=== PATIENT | male | born 1950 | race Caucasian/White ===

== ENCOUNTER 2021-03-13 07:13 | Inpatient (IN) ==
[2021-03-13] MEDS ORDERED: IOPAMIDOL 100 ML BOTTLE IV ONE (07:14)
[2021-03-13] MEDS ORDERED: IPRATROPIUM/ALBUTEROL 3 ML AMPUL.NEB NEB ONE (07:32)
[2021-03-13] MEDS ORDERED: 0.9 % SODIUM CHLORIDE 1,000 ML IV ONE ×2 (07:32→12:50)
--- NOTE | 2021-03-13 07:47 | Emergency Department Note ---
SOB HPI General Chief Complaint: Shortness of Breath/Dyspnea Stated Complaint: Sob, low sats Time Seen by Provider: 03/13/21 07:21 Source: EMS Mode of arrival: EMS Limitations: no limitations History of Present Illness HPI Narrative: 71-year-old male with past medical history of hypertension, lung cancer with metastases, paroxysmal A. fib, and history of Guillain-Quinteros syndrome presenting with shortness of breath. Patient states he has been getting more short of breath over the past few weeks. He called EMS this morning because his breathing was worse and did not seem to improve after using an albuterol inhaler. He has known metastatic lung cancer but is not currently being treated. Patient states they were trying to set him up with home oxygen and a home nebulizer but it has not been done. He is not on oxygen at home right now. Prior smoker. Patient endorses a nonproductive cough and reportedly a fever at home but he was afebrile in the ED. No sick contacts. Patient denies chest pain, vomiting, headache, abdominal pain, or leg swelling. Not on anticoagulation. Patient states that if his breathing were to worsen he would not want to be intubated or placed on a ventilator. He states that if his heart were to stop he would not want CPR and cardiac resuscitation. Related Data Home Medications Medication Instructions Recorded Confirmed amlodipine [Norvasc] 5 mg PO DAILY 03/13/21 03/13/21 benazepril 40 mg PO DAILY 03/13/21 03/13/21 Allergies Allergy/AdvReac Type Severity Reaction Status Date / Time No Known Drug Allergies Allergy Verified 03/13/21 07:13 Review of Systems ROS ROS Narrative: Narrative: Constitutional: Denies chills Eyes: Denies vision change ENT ED: Denies ear pain and throat pain Cardiovascular: Denies chest pain and palpitations Respiratory: Reports shortness of breath and cough; Denies hemoptysis Gastrointestinal: Denies abdominal pain, nausea and vomiting Genitourinary: Denies dysuria and frequency Musculoskeletal: Denies back pain and joint swelling Integumentary: Denies rash and lesions Neurological: Denies headache and weakness Psychiatric: Denies anxiety and depression Endocrine: Denies fatigue and heat or cold intolerance Hematological/Lymphatic: Denies easy bleeding and easy bruising PFSH Narrative Patient History Narrative: Narrative: Medical/Surgical/Family History All Active Problems (Updated 03/13/21 @ 11:24 by Poncho Naranjo MD) Left lower lobe pneumonia (Acute) Tachycardia (Acute) Weight loss, non-intentional (Acute) Right pulmonary embolus (Acute) Hypoxia (Acute) Hypertension, essential (Chronic) Cigarette smoker (Chronic) History of atrial fibrillation (Chronic ~2016) Daily consumption of alcohol (Chronic) Coronary artery calcification seen on CAT scan (Chronic) Centrilobular emphysema (Chronic) Kidney calculi (Chronic) Medical History (Updated 03/13/21 @ 11:24 by Poncho Naranjo MD) Adenocarcinoma of left lung moderately differentiated; s/p lobectomy TTF-1: Positive. Napsin-A: Positive. CK7: Positive. CK20: Negative. p63: Negative. Centrilobular emphysema mild, seen on CT chest October 2016 Cigarette smoker Coronary artery calcification seen on CAT scan chest CT October 2016 Daily consumption of alcohol past usual 6 pack/day History of atrial fibrillation (~2016) attempted cardioversion once, then spontaneously reverted to sinus. History of Guillain-Withams syndrome (~2006) Hypertension, essential Kidney calculi Surgical History (Updated 11/27/18 @ 09:52 by Xavier Carrillo DO) History of kidney surgery for removal of stone S/P lobectomy of lung left upper (adenocarcinoma) Status post tracheostomy when had Guillain-Withams Family History (Updated 11/27/18 @ 09:52 by Xavier Carrillo DO) Mother Valvular heart disease Social History Smoking Status: Current every day smoker Exam Narrative Narrative: Narrative: General Limitations: no limitations General appearance: Present alert and in no apparent distress Head Head: Present atraumatic and normocephalic Eye Eye: Present normal appearance, PERRL and EOMI; Absent scleral icterus and conjunctival injection ENT ENT: Present normal oropharynx and mucous membranes moist Neck Neck: Present full ROM and trachea midline; Absent lymphadenopathy and thyromegaly Chest Chest: Present symmetric chest wall rise Respiratory Respiratory: Present wheezes (Faint expiratory wheezes present) and other (Coarse breath sounds bilaterally); Absent respiratory distress, stridor, accessory muscle use and prolonged expiratory phase Cardiovascular Cardiovascular: Present normal rhythm and tachycardia; Absent systolic murmur and diastolic murmur Adbominal Abdominal: Present soft; Absent distention, tenderness, guarding, rebound, rigidity, organomegaly and mass Extremities Extremities: Absent pedal edema, pretibial edema and calf tenderness Back Back: Absent CVA tenderness (R), CVA tenderness (L) and spinous process tenderness Neurological Neurological: Present alert and oriented X3 Psychiatric Psychiatric: Present normal affect and normal mood Skin Skin: Present warm (WNL) and dry Course Consultations Consultation #1: Dr. Campbell, hospitalist Time: 10:53 Vital Signs Vital signs: Vital Signs Temperature 97.5 F 03/13/21 07:13 Pulse Rate 143 H 03/13/21 07:13 Respiratory Rate 20 03/13/21 07:13 Blood Pressure 150/84 03/13/21 07:13 Pulse Oximetry (%) 94 03/13/21 07:13 Temperature 97.5 F 03/13/21 07:13 Pulse Rate 128 H 03/13/21 12:46 Respiratory Rate 28 H 03/13/21 12:46 Blood Pressure 108/61 03/13/21 12:46 Pulse Oximetry (%) 90 03/13/21 12:46 MDM MDM Narrative Medical decision making narrative: 71-year-old male presenting with dyspnea in the setting of known metastatic lung cancer. On EMS arrival he was satting in the 60s on room air. He is now satting 93% on 4 L via nasal cannula. EKG shows sinus tachycardia. He does have some faint wheezing and coarse breath sounds on exam. Patient is DNR/DNI. Will obtain labs, chest x-ray, Covid swab, and reevaluate. Labs notable for mild BETINA. Chest x-ray with no focal infiltrate. Given persistent hypoxia, CT chest obtained which shows multiple right lower lobe pulmonary emboli. Patient stable on 5 L O2 via nasal cannula. 2 L normal saline bolus given. IM subcutaneous enoxaparin 60 mg given. Covid test negative. Patient discussed with admitting hospitalist, Dr. Campbell. Lab Data Lab results reviewed: Yes I reviewed the patient's lab results. Result diagrams: 03/13/21 07:50 03/13/21 07:50 Labs: Lab Results 03/13/21 03/13/21 03/13/21 Range/Units 07:33 07:50 07:50 WBC 14.4 H (4.5-11.0) K/mcL RBC 3.83 L (4.63-6.08) M/mcL Hgb 10.7 L (13.7-17.5) g/dL Hct 32.3 L (40.1-51.0) % MCV 84.3 (80.0-100.0) fL MCH 27.9 (26.0-34.0) pg MCHC 33.1 (31.0-36.0) g/dL RDW 16.3 H (11.5-14.5) % Plt Count 310 (140-440) K/mcL MPV 11.1 H (7.4-10.4) fL Neut % (Auto) 71.3 (38.0-78.0) % Lymph % (Auto) 16.1 (15.5-49.0) % [place] % (Auto) 7.9 (1.0-12.0) % Eos % (Auto) 3.9 (0.0-7.0) % Baso % (Auto) 0.8 (0.0-2.0) % Lymph # (Auto) 2.31 (1.50-4.80) K/mcL [place] # (Auto) 1.14 H (0.10-0.90) K/mcL Eos # (Auto) 0.56 (0.00-0.70) K/mcL Baso # (Auto) 0.11 (0.00-0.30) K/mcL Absolute Neutrophils 10.24 H (1.80-8.00) K/mcL PT 15.8 H (11.9-14.5) sec INR 1.2 H (0.9-1.1) APTT 37.0 (20.0-37.0) sec Sodium 140 (133-145) mmol/L Potassium 3.7 (3.3-5.1) mmol/L Chloride 100 (96-108) mmol/L Carbon Dioxide 24 (22-30) mmol/L Anion Gap 16.0 (8.0-16.0) BUN 16 (8-23) mg/dL Creatinine 1.4 H (0.7-1.2) mg/dL GFR Calculation 51 Glucose 116 H (70-105) mg/dL Calcium 9.0 (8.6-10.4) mg/dL Total Bilirubin 0.5 (0.1-1.0) mg/dL AST 24 (<40) U/L ALT 13 (<40) U/L Alkaline Phosphatase 106 (39-117) U/L Total Protein 7.5 (5.9-8.4) gm/dL Albumin 3.1 L (3.2-5.2) gm/dL Globulin 4.4 H (2.2-3.7) gm/dL Albumin/Globulin Ratio 0.7 L (1.0-2.3) ED POC Tests ED POC Tests: SANKET - SARS Antigen Negative Radiology Data Radiology results reviewed: Yes I reviewed the patient's radiology results. Radiology results narrative: Ordering Physician: Poncho Naranjo M.D. Date of Service: 03/13/21 Procedure(s): XR chest 1V Accession Number(s): [id number] HISTORY: Dyspnea status post partial resection left lung for lung cancer, emphysema FINDINGS: There is chronic scar tissue around the left hilum and medially in the left upper thorax following a prior lobectomy. Left lung is slightly smaller than the right, but both lungs are hyperinflated due to underlying emphysema. Mild parenchymal scarring in both lungs. There is no evidence of pneumonia and no discrete mass is identified. The Nodules which were seen in the right upper lobe on the chest CT done on 02/11/21 are not clearly identified on radiograph. The heart size is normal. There is no congestive heart failure. Comparison with prior x-ray done on 10/20/20 shows little change. IMPRESSION: COPD and postsurgical changes with no acute abnormality Interpreted and Authenticated by: Jonatan Gao 03/13/21 CTA chest: Multiple pulmonary emboli in the right lower lobe, per radiologist Dr. Gao. EKG Data EKG #1: EKG attestation: Yes I reviewed and interpreted this EKG. and Yes There are no EKG findings of acute coronary syndrome EKG results narrative: Sinus tachycardia at 142 bpm. Right bundle branch block is present. No ST elevation. EKG appears similar to previous from October 2020. When compared to previous EKG there are: no significant changes Pulse Oximetry Data Pulse Ox %: 93 Interpretation: On 4 L O2 via nasal cannula Discharge Plan Patient/Caregiver Discharge Instructions Pt seen by DIRECTOR [place] only: No Clinical Impression: Right pulmonary embolus, Hypoxia Patient Disposition: Xfer As Inpt ([facility]) Condition: Fair Discharge Date/Time: 03/13/21 12:35 Discharge Comment: Room 119
[2021-03-13] MEDS ORDERED: methylPREDNISolone SOD SUCC 125 MG/2 ML VIAL IV ONE (08:23)
[2021-03-13 08:32] LABS: Basophils # (Auto) 0.11 K/mcL (0.00-0.30); Basophils % (Auto) 0.8 % (0.0-2.0); Eosinophils # (Auto) 0.56 K/mcL (0.00-0.70); Eosinophils % (Auto) 3.9 % (0.0-7.0); Hematocrit 32.3 % (40.1-51.0); Hemoglobin 10.7 g/dL (13.7-17.5); Lymphocytes # (Auto) 2.31 K/mcL (1.50-4.80); Lymphocytes % (Auto) 16.1 % (15.5-49.0); Mean Cell Volume 84.3 fL (80.0-100.0); Mean Corpuscular HGB Conc 33.1 g/dL (31.0-36.0); Mean Platelet Volume 11.1 fL (7.4-10.4); Monocytes # (Auto) 1.14 K/mcL (0.10-0.90); Monocytes % (Auto) 7.9 % (1.0-12.0); Neutrophils % (Auto) 71.3 % (38.0-78.0); Platelet Count 310 K/mcL (140-440); RBC 3.83 M/mcL (4.63-6.08); Red Cell Distribution Width 16.3 % (11.5-14.5); WBC 14.4 K/mcL (4.5-11.0)
--- NOTE | 2021-03-13 08:42 | XRay Report ---
HISTORY: Dyspnea status post partial resection left lung for lung cancer, emphysema FINDINGS: There is chronic scar tissue around the left hilum and medially in the left upper thorax following a prior lobectomy. Left lung is slightly smaller than the right, but both lungs are hyperinflated due to underlying emphysema. Mild parenchymal scarring in both lungs. There is no evidence of pneumonia and no discrete mass is identified. The Nodules which were seen in the right upper lobe on the chest CT done on 02/11/21 are not clearly identified on radiograph. The heart size is normal. There is no congestive heart failure. Comparison with prior x-ray done on 10/20/20 shows little change. IMPRESSION: COPD and postsurgical changes with no acute abnormality Interpreted and Authenticated by: Jonatan Gao 03/13/21
[2021-03-13 08:54] LABS: ALT/SGPT 13 U/L (<40); AST/SGOT 24 U/L (<40); Albumin 3.1 gm/dL (3.2-5.2); Albumin/Globulin Ratio 0.7 (1.0-2.3); Alkaline Phosphatase 106 U/L (39-117); Bilirubin,Total 0.5 mg/dL (0.1-1.0); Blood Urea Nitrogen 16 mg/dL (8-23); Carbon Dioxide 24 mmol/L (22-30); Chloride 100 mmol/L (96-108); Globulin 4.4 gm/dL (2.2-3.7); Glomerular Filtration Rate 51; Glucose 116 mg/dL (70-105)
[2021-03-13] MEDS ORDERED: ENOXAPARIN 60 MG/0.6 ML SYRINGE SQ ONE (10:00)
[2021-03-13 10:45] LABS: INR 1.2 (0.9-1.1); Prothrombin Time 15.8 sec (11.9-14.5)
--- NOTE | 2021-03-13 11:47 | Internal Med History&Physical ---
HPI History of Present Illness Patient information: Note initiated : 03/13/21 at 11:47 am Service Date, if different from initiated Date: [] Patient: Richy Boggs 71 y/o M admitted on for Sob, low sats. Chief Complaint: Dyspnea History of present illness: Mr. Boggs is a 71 year old M with a history of COPD, adenocarcinoma lung cancer (2017) with possible adrenal met (PET/CT pending for 03/15), hypertension, paroxysmal atrial fibrillation who presented to the emergency department with worsening dyspnea. Patient does have chronic dyspnea and is noted dyspnea with exertion for about the last 6 months. However over the last 3-4 days he has had significantly worsening dyspnea with exertion. His family notes that he desats into the low 80s in mid 70s with exertion over the past few days and has been in the high 80s at rest on room air. They have been working with his PCP to obtain home oxygen and a nebulizer. He presents to the emergency department today because of worsening dyspnea. EMS found his saturations in the low 60s and he required 5 LPM by nasal cannula to maintain saturations. In the emergency department, he had some mild wheezing and had a DuoNeb which may have provided some transient benefit. He was tachycardic as well as tachypneic. White count was elevated at 14,000, though chest x-ray showed postoperative changes (partial left upper lobectomy in 2017) and nothing acute. He underwent CTA of the chest which revealed right lower and middle lobe pulmonary emboli. He was started on enoxaparin. Patient denies any fevers or chills. He occasionally gets chest tightness. He has a chronic cough though lately he has not been producing sputum. He has had no hemoptysis. He has pain along his lower rib margin with inspiration. As noted he is felt dyspneic with exertion for about 6 months, though that is significantly worsened over the last 3-4 days. He has noted some wheezing, but not much. In addition the patient has been losing weight over the last few months and has decreased appetite. He did have one episode of night sweats in the last week or 2. He does complain of some nausea after getting episodes of vertigo which appear to occur at night when he rolls over. His last episode was about a week ago. Complains of some numbness in his feet. Is had no lower extremity edema, no orthopnea. There is no family history of clotting disorders. Review of Systems All systems: reviewed and no additional remarkable complaints except as stated PFSH PFSH All Active Problems (Updated 03/13/21 @ 11:24 by Poncho Naranjo MD) Left lower lobe pneumonia (Acute) Tachycardia (Acute) Weight loss, non-intentional (Acute) Right pulmonary embolus (Acute) Hypoxia (Acute) Hypertension, essential (Chronic) Cigarette smoker (Chronic) History of atrial fibrillation (Chronic ~2016) Daily consumption of alcohol (Chronic) Coronary artery calcification seen on CAT scan (Chronic) Centrilobular emphysema (Chronic) Kidney calculi (Chronic) Medical History (Updated 03/13/21 @ 11:24 by Poncho Naranjo MD) Adenocarcinoma of left lung moderately differentiated; s/p lobectomy TTF-1: Positive. Napsin-A: Positive. CK7: Positive. CK20: Negative. p63: Negative. Centrilobular emphysema mild, seen on CT chest October 2016 Cigarette smoker Coronary artery calcification seen on CAT scan chest CT October 2016 Daily consumption of alcohol past usual 6 pack/day History of atrial fibrillation (~2016) attempted cardioversion once, then spontaneously reverted to sinus. History of Guillain-Redding syndrome (~2006) Hypertension, essential Kidney calculi Surgical History (Updated 11/27/18 @ 09:52 by Xavier Carrillo DO) History of kidney surgery for removal of stone S/P lobectomy of lung left upper (adenocarcinoma) Status post tracheostomy when had Guillain-Redding Family History (Updated 11/27/18 @ 09:52 by Xavier Carrillo DO) Mother Valvular heart disease Social History (Updated 03/13/21 @ 15:58 by Gricelda Campbell MD) smoking status: Current every day smoker tobacco type: cigarettes alcohol intake frequency: former alcohol drinker MEDS/ALLERGIES Home Medications and Allergies Home Medications Medication Instructions Recorded Confirmed Type amlodipine [Norvasc] 5 mg PO DAILY 03/13/21 03/13/21 History benazepril 40 mg PO DAILY 03/13/21 03/13/21 History Allergies Allergy/AdvReac Type Severity Reaction Status Date / Time No Known Drug Allergies Allergy Verified 03/13/21 07:13 EXAM Constitutional Vitals: Temp Pulse Resp BP Pulse Ox 97.5 F 120 H 30 H 113/70 89 L 03/13/21 07:13 03/13/21 11:27 03/13/21 11:27 03/13/21 11:15 03/13/21 11:27 GENERAL: Alert, oriented, in mild respiratory distress. Cooperative, appears stated age. HEENT: Atraumatic. Pupils equal at 3 mm, conjunctiva clear, no scleral icterus. Hearing grossly intact. Oropharynx with tacky mucous membranes, no lip or gum lesions, no pharyngeal erythema or exudate. Tongue midline. NECK: Supple without meningismus, no thyromegaly RESPIRATORY: Breath sounds clear bilaterally without wheezes or rhonchi. Respiratory effort is moderately labored. CARDIOVASCULAR: Tachycardic, regular, no gallop appreciated. No peripheral edema. Carotid pulses 2+. GI: Abdomen soft, nontender, no guarding or rebound. Bowel sounds are present. MUSCULOSKELETAL: No joint erythema or swelling, normal range of motion in all extremities. SKIN: Intact, warm, dry. No lesions. Skin turgor decreased. NEUROLOGIC: Cranial nerves II through XII grossly intact. Muscle mass decreased. Strength 5/5 in the upper and lower extremities. Sensation intact to light touch bilaterally. PSYCHIATRIC: Alert, oriented x3, normal mood and affect for situation, normal insight. DATA Data Completed and Pending Labs: Labs from last 24 hours 03/13/21 03/13/21 03/13/21 07:50 07:50 07:33 WBC 14.4 H RBC 3.83 L Hgb 10.7 L Hct 32.3 L MCV 84.3 MCH 27.9 MCHC 33.1 RDW 16.3 H Plt Count 310 MPV 11.1 H Neut % (Auto) 71.3 Lymph % (Auto) 16.1 [place] % (Auto) 7.9 Eos % (Auto) 3.9 Baso % (Auto) 0.8 Lymph # (Auto) 2.31 [place] # (Auto) 1.14 H Eos # (Auto) 0.56 Baso # (Auto) 0.11 Absolute Neutrophils 10.24 H PT 15.8 H INR 1.2 H APTT 37.0 Sodium 140 Potassium 3.7 Chloride 100 Carbon Dioxide 24 Anion Gap 16.0 BUN 16 Creatinine 1.4 H GFR Calculation 51 Glucose 116 H Calcium 9.0 Total Bilirubin 0.5 AST 24 ALT 13 Alkaline Phosphatase 106 Total Protein 7.5 Albumin 3.1 L Globulin 4.4 H Albumin/Globulin Ratio 0.7 L Imaging and Cardiology Chest x-ray: Status: image reviewed by me Additional comments: IMPRESSION: COPD and postsurgical changes with no acute abnormality CT scan - chest: Status: image reviewed by me Additional comments: IMPRESSION: Multiple pulmonary emboli in the right lower lobe with milder involvement in the right middle lobe. Right heart strain COPD and pulmonary fibrosis No evidence of metastasis or recurrent tumor following left upper lobectomy Echo: Additional comments: Normal LVEF. Dilated right ventricle which is hypocontractile. Moderate pulmonary regurgitation, PA pressure 66. 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 A/P Narrative A/P Narrative: 71-year-old male with underlying COPD, history of lung cancer with possible recurrence, paroxysmal atrial fibrillation presents with worsening dyspnea on exertion, found to have multiple right lower and middle lobe pulmonary emboli. Pulmonary emboli -Right lower and right middle lobe involvement -Right heart strain on CT and echocardiogram -High risk submassive pulmonary embolism -Started on enoxaparin in the ED prior to echo result -Suspicious this may be provoked from recurrent lung cancer -Discussed with [facility] scale mechanic -Close monitoring -Patient would prefer to stay at this facility versus transfer for possibility of site directed thrombolytics -He realizes, if condition worsens we may not be able to affect transfer -Systemic TPA also possible -We will rule out acidosis and correct such to improve RV function -Maintain adequate oxygen saturations to prevent hypoxic pulmonary vasoconstriction -Transition to unfractionated heparin when next enoxaparin dose due -We will continue to consult with [facility] scale mechanic and update Acute hypoxemic respiratory failure -Secondary to pulmonary emboli COPD -No acute exacerbation -No wheezing on exam -Suspect presentation due to pulmonary emboli and not COPD exacerbation or pulmonary infection Paroxysmal atrial fibrillation -In normal sinus rhythm Non-small cell lung cancer -Adenocarcinoma, status post partial left upper lobectomy in 2017 -Weight loss and suspicion is adrenal lesions for metastasis -Was to have PET/CT 03/15, will need to be postponed Chronic kidney disease -Creatinine 1.4, similar to 1 month ago -Creatinine on 11/25/2018 was 1.0 Plan: Inpatient admission Enoxaparin, transition to unfractionated heparin Supplemental oxygen to maintain SaO2 Close monitoring of saturations and hemodynamics Check ABG, correct any acidosis Check BNP and troponin, trend Check lower extremity duplex Monitor hemoglobin, correct any anemia Consider systemic TPA and/or transfer if decompensated Patient accepts risks of remaining locally and reiterates DNR/DNI CODE STATUS CODE STATUS: DNR/DNI Prophylaxis: Systemic anticoagulation with heparins Critical care time: 33 minutes in bedside management of critically ill patient with respiratory failure from submassive pulmonary embolism, including management at bedside, consultation with specialist, reevaluating the patient while immediately available on the unit.
[2021-03-13] MEDS ORDERED: ONDANSETRON 4 MG/2 ML VIAL IV PRN (12:37)
[2021-03-13] MEDS ORDERED: MAGNESIUM HYDROXIDE 30 ML ORAL.SUSP PO PRN (12:37)
[2021-03-13] MEDS ORDERED: ACETAMINOPHEN 325 MG TABLET PO PRN (12:37)
[2021-03-13] MEDS ORDERED: 0.9 % SODIUM CHLORIDE 1,000 ML IV SCH (12:37)
[2021-03-13] MEDS ORDERED: IPRATROPIUM/ALBUTEROL 3 ML AMPUL.NEB NEB PRN (12:37)
[2021-03-13] MEDS ORDERED: SENNOSIDES 1 TABLET PO PRN (12:37)
[2021-03-13] MEDS ORDERED: LACTULOSE 20 GM/30 ML ORAL.SOL PO PRN (12:37)
[2021-03-13] MEDS: 0.9 % SODIUM CHLORIDE 10 ML SYRINGE IV SCH ×3 (12:45→21:25)
--- NOTE | 2021-03-13 14:48 | Cat Scan Report ---
History: Dyspnea, prior left upper lobectomy for lung cancer, COPD TECHNIQUE: Following injection of intravenous nonionic contrast the chest was imaged during the pulmonary arterial phase at 2.5 mm intervals. Sagittal, coronal and axial MIPS images were obtained. The radiation exposure was limited using dose reduction technology. FINDINGS: There are multiple pulmonary emboli in the right lower lobe. This predominantly involves the basilar segments but there is a small embolus to the branch to the superior segment. Small peripheral embolus is seen in the right middle lobe. The right upper lobe is normal. No embolus is present in the left lung. There is evidence of right heart strain. The ratio of right ventricular transverse diameter to left is 1.6:1. The main pulmonary artery is not larger than the aorta. There are postsurgical changes following prior left upper lobectomy. There is scar tissue medially in the left upper thorax and upper retraction left hilum. No residual or recurrent tumor are present. Moderate centrilobular emphysema is present in both lungs. There are scattered areas of fibrosis. Low level inflammation is present in the posterior basal segment of the left lower lobe. The inflammatory changes in the left lower lobe have improved since the prior CT done on 02/11/21. A small ground glass alveolar infiltrate was also seen posteriorly in the right upper lobe on the prior CT which has nearly resolved. There is no lobar consolidation. No pleural effusion is present. The trachea and bronchi are normal. IMPRESSION: Multiple pulmonary emboli in the right lower lobe with milder involvement in the right middle lobe. Right heart strain COPD and pulmonary fibrosis No evidence of metastasis or recurrent tumor following left upper lobectomy Dr. Naranjo was called with the report Interpreted and Authenticated by: Jonatan Gao 03/13/21
[2021-03-13 15:58] LABS: Appearance,Urine CLEAR (Clear); Bilirubin,Urine Negative (Negative); Color,Urine AMBER; Culture Indicated,Urine No; Glucose,Urine (UA) Negative (Negative); Ketones,Urine Negative (Negative); Leukocyte Esterase,Urine Negative /uL (Negative); Nitrate,Urine Negative (Negative); Protein,Urine 30 mg/dL (Negative); Specific Gravity,Urine 1.019 (1.000-1.035); Urine Blood 0.03 mg/dL (Negative); Urine RBC 0 /hpf (0-3); Urine Squamous Epithelial Cell 0 /hpf (0-4); Urine WBC 0 /hpf (0-4); Urobilinogen,Urine Negative
[2021-03-13] MEDS: 0.9 % SODIUM CHLORIDE 1,000 ML IV SCH (18:48)
[2021-03-13] MEDS ORDERED: HEPARIN 5,000 UNIT/ML VIAL IV ONE (19:49)
[2021-03-13] MEDS ORDERED: ENOXAPARIN 100 MG/ML SYRINGE SQ SCH (21:00)
[2021-03-13] MEDS: HEPARIN SOD,PORK IN 0.45% NACL 25,000 UNIT in PREMIX 1 BAG IV SCH (21:28)
[2021-03-14] MEDS: 0.9 % SODIUM CHLORIDE 1,000 ML IV SCH (03:43)
[2021-03-14 04:39] LABS: Basophils # (Auto) 0.02 K/mcL (0.00-0.30); Basophils % (Auto) 0.2 % (0.0-2.0); Eosinophils # (Auto) 0 K/mcL (0.00-0.70); Eosinophils % (Auto) 0 % (0.0-7.0); Hematocrit 30.5 % (40.1-51.0); Hemoglobin 9.8 g/dL (13.7-17.5); Lymphocytes # (Auto) 2.14 K/mcL (1.50-4.80); Lymphocytes % (Auto) 16.9 % (15.5-49.0); Mean Cell Volume 85.9 fL (80.0-100.0); Mean Corpuscular HGB Conc 32.1 g/dL (31.0-36.0); Mean Platelet Volume 11.4 fL (7.4-10.4); Monocytes # (Auto) 0.61 K/mcL (0.10-0.90); Monocytes % (Auto) 4.8 % (1.0-12.0); Neutrophils % (Auto) 78.1 % (38.0-78.0); Platelet Count 351 K/mcL (140-440); RBC 3.55 M/mcL (4.63-6.08); Red Cell Distribution Width 16.3 % (11.5-14.5); WBC 12.7 K/mcL (4.5-11.0)
[2021-03-14 04:56] LABS: Blood Urea Nitrogen 27 mg/dL (8-23); Calcium 8.7 mg/dL (8.6-10.4); Carbon Dioxide 21 mmol/L (22-30); Chloride 101 mmol/L (96-108); Glomerular Filtration Rate 55; Glucose 150 mg/dL (70-105)
[2021-03-14] MEDS: 0.9 % SODIUM CHLORIDE 10 ML SYRINGE IV SCH ×3 (06:28→22:04)
[2021-03-14] MEDS: PANTOPRAZOLE 40 MG TABLET PO SCH (07:43)
[2021-03-14] MEDS ORDERED: HEPARIN 5,000 UNIT/ML VIAL IV ONE ×3 (07:45→22:00)
--- NOTE | 2021-03-14 08:07 | Internal Med Progress Note ---
SUBJECTIVE Subjective Patient information: Note initiated : 03/14/21 at 8:07 am Service Date, if different from initiated Date: [] Patient: Richy Boggs 71 y/o M admitted on 03/13/21 for Sob, low sats. Chief Complaint: f/u PE Interval history: Mr. Boggs is a 71 year old M with a history of COPD, adenocarcinoma lung cancer (2017) with possible adrenal met (PET/CT pending for 03/15), hypertension, paroxysmal atrial fibrillation who presented to the emergency department with worsening dyspnea. Patient does have chronic dyspnea and is noted dyspnea with exertion for about the last 6 months. However over the last 3-4 days he has had significantly worsening dyspnea with exertion. His family notes that he desats into the low 80s in mid 70s with exertion over the past few days and has been in the high 80s at rest on room air. They have been working with his PCP to obtain home oxygen and a nebulizer. He presents to the emergency department today because of worsening dyspnea. EMS found his saturations in the low 60s and he required 5 LPM by nasal cannula to maintain saturations. In the emergency department, he had some mild wheezing and had a DuoNeb which may have provided some transient benefit. He was tachycardic as well as tac hypneic. White count was elevated at 14,000, though chest x-ray showed postoperative changes (partial left upper lobectomy in 2017) and nothing acute. He underwent CTA of the chest which revealed right lower and middle lobe pulmonary emboli. He was started on enoxaparin. Patient denies any fevers or chills. He occasionally gets chest tightness. He has a chronic cough though lately he has not been producing sputum. He has had no hemoptysis. He has pain along his lower rib margin with inspiration. As noted he is felt dyspneic with exertion for about 6 months, though that is significantly worsened over the last 3-4 days. He has noted some wheezing, but not much. 03/14 Patient more comfortable this morning. Not quite as dyspneic. However does desaturate with most movement. No chest pain. Did not sleep at all last night, is unable to fall asleep. Requesting something to help sleep. BNP 11,490 today. On 10 LPM by facemask, have been on 12 LPM last night. Constitutional Vitals: Vital Signs Temp Pulse Resp BP Pulse Ox 98.4 F 120 H 28 H 142/91 94 03/14/21 04:09 03/14/21 05:37 03/14/21 06:00 03/14/21 06:00 03/14/21 06:00 Period Temp Pulse Resp BP Sys/Alvarenga Pulse Ox Last 24 Hr 97.1 F-98.9 F 120-139 19-40 100-176/61-99 85-98 Intake and Output 03/13/21 03/14/21 03/14/21 21:59 05:59 13:59 Intake Total 465 755 156 Output Total 600 375 Balance -135 380 156 Weight 143 lb 8 oz Intake & Output: Intake & Output 03/13/21 03/14/21 03/14/21 21:59 05:59 13:59 Intake Total 465 755 156 Output Total 600 375 Balance -135 380 156 Weight 143 lb 8 oz Intake: IV 465 515 156 Sodium Chloride 0.9% 1,000 ml @ 465 515 100 mls/hr IV .Q10H [facility] Rx#: [id number] Heparin/0.45%Ns 25,000 Unit In 156 Premix 1 Bag @ 14 UNIT/KG/HR 17 .781 mls/hr IV .Q24H [facility] Rx#: [id number] Oral 240 Output: Void Amount 600 375 Other: Meal Dinner Percent of Meal Consumed 0% Feeding Ability Independent Urine Appearance Clear Clear Urine Color Dark Em Dark Yellow Urine Odor Normal Normal Stool Size Moderate Stool Color Brown Stool Consistency Soft Watery # Bowel Movements 1 GENERAL: Laying in bed, mildly tachypneic, nontoxic RESPIRATORY: Clear bilaterally, respirations mildly labored CARDIOVASCULAR: Tachycardic, regular ABDOMEN: Soft, nontender EXTREMITIES: No edema, no tenderness NEURO: Alert, oriented x3, mild generalized weakness OBJ DATA Labs CBC & Chem 7: 03/14/21 04:10 03/14/21 04:10 Labs: Abnormal Lab Results 03/14/21 03/14/21 03/14/21 04:10 04:10 04:09 WBC 12.7 H RBC 3.55 L Hgb 9.8 L Hct 30.5 L RDW 16.3 H MPV 11.4 H Neut % (Auto) 78.1 H [place] # (Auto) Absolute Neutrophils 9.92 H PT INR APTT 42.4 H Carbon Dioxide 21 L BUN 27 H Creatinine 1.3 H Glucose 150 H Troponin T NT-Pro-B Natriuret Pep Albumin Globulin Albumin/Globulin Ratio Urine Protein 03/14/21 03/13/21 03/13/21 04:09 15:17 07:50 WBC RBC Hgb Hct RDW MPV Neut % (Auto) [place] # (Auto) Absolute Neutrophils PT INR APTT Carbon Dioxide BUN Creatinine Glucose Troponin T NT-Pro-B Natriuret Pep 29262.0 H 4997.0 H Albumin Globulin Albumin/Globulin Ratio Urine Protein 30 A 03/13/21 03/13/21 03/13/21 07:50 07:50 07:50 WBC 14.4 H RBC 3.83 L Hgb 10.7 L Hct 32.3 L RDW 16.3 H MPV 11.1 H Neut % (Auto) [place] # (Auto) 1.14 H Absolute Neutrophils 10.24 H PT INR APTT Carbon Dioxide BUN Creatinine 1.4 H Glucose 116 H Troponin T 0.08 H* NT-Pro-B Natriuret Pep Albumin 3.1 L Globulin 4.4 H Albumin/Globulin Ratio 0.7 L Urine Protein 03/13/21 07:33 WBC RBC Hgb Hct RDW MPV Neut % (Auto) [place] # (Auto) Absolute Neutrophils PT 15.8 H INR 1.2 H APTT Carbon Dioxide BUN Creatinine Glucose Troponin T NT-Pro-B Natriuret Pep Albumin Globulin Albumin/Globulin Ratio Urine Protein Meds: Medications Acetaminophen (Acetaminophen 325 Mg Tablet) 650 mg PO Q6HP PRN; Protocol PRN Reason: Per Pain Protocol/Fever > 101 Last Admin: 03/13/21 21:48 Dose: 650 mg Documented by: Albuterol/Ipratropium (Ipratropium/Albuterol 3 Ml Ampul.Neb) 3 ml NEB Q4HP PRN PRN Reason: Wheezing Heparin Sodium/Sodium Chloride (25,000 unit/ Premix) 500 mls @ 17.781 mls/hr IV .Q24H [facility]; Protocol Last Titration: 03/14/21 06:15 Dose: 18 unit/kg/hr, 22.861 mls/hr Documented by: Lactulose (Lactulose 20 Gm/30 Ml Oral.Denice) 10 gm PO DAILYP PRN PRN Reason: Constipation Magnesium Hydroxide (Magnesium Hydroxide 30 Ml Oral.Susp) 30 ml PO DAILYP PRN PRN Reason: Constipation Ondansetron HCl (Ondansetron 4 Mg/2 Ml Vial) 4 mg IV Q4HP PRN; Protocol PRN Reason: Nausea And Vomiting Pantoprazole Sodium (Pantoprazole 40 Mg Tablet) 40 mg PO QAMAC [facility] Last Admin: 03/14/21 07:43 Dose: 40 mg Documented by: Senna (Sennosides 1 Tablet) 2 tab PO HSP PRN PRN Reason: Constipation Sodium Chloride (0.9 % Sodium Chloride 10 Ml Syringe) 10 ml IV Q8 [facility] Last Admin: 03/14/21 06:28 Dose: Not Given Documented by: A/P Narrative A/P Narrative: 71-year-old male with underlying COPD, history of lung cancer with possible recurrence, paroxysmal atrial fibrillation presents with worsening dyspnea on exertion, found to have multiple right lower and middle lobe pulmonary emboli. Pulmonary emboli -High risk submassive pulmonary emboli -Right lower and right middle lobe involvement -Right heart strain on CT and echocardiogram -Started on enoxaparin in the ED prior to echo result -Transition to IV heparin after discussion with [facility] metal stamping machine operator -Suspicious this may be provoked from recurrent lung cancer -Close monitoring -Patient would prefer to stay at this facility versus transfer for possibility of site directed thrombolytics -He realizes, if condition worsens we may not be able to affect transfer -Systemic TPA also possible -No evidence of acidosis, will continue to monitor and correct if needed to maintain RV function -Maintain adequate oxygen saturations to prevent hypoxic pulmonary vasoconstriction -Will continue to consult with [facility] metal stamping machine operator and update as needed Acute hypoxemic respiratory failure -Secondary to pulmonary emboli COPD -No acute exacerbation -No wheezing on exam -Suspect presentation due to pulmonary emboli and not COPD exacerbation or pulmonary infection Paroxysmal atrial fibrillation -In normal sinus rhythm Non-small cell lung cancer -Adenocarcinoma, status post partial left upper lobectomy in 2017 -Weight loss and suspicion is adrenal lesions for metastasis -Was to have PET/CT 03/15, will need to be postponed Chronic kidney disease -Creatinine 1.4, similar to 1 month ago -Creatinine on 11/25/2018 was 1.0 -Creatinine 1.3 on 03/14 Plan: * Continue unfractionated heparin * Continue supplemental oxygen to maintain SaO2 greater than 92% * Continue to closely monitor hemodynamics and oxygen saturations * Saline lock to avoid RV overload * Bedrest given hypoxia with exertion * Continue to trend BNP * Monitor hemoglobin, correct anemia if present * If decompensates, consider systemic TPA and/or transfer * Follow-up lower extremity duplex to evaluate any further clot burden CODE STATUS: DNR/DNI Prophylaxis: Systemic anticoagulation with heparin Time Spent With Patient Time: Total time spent is greater than 50% in coordination of care (as documented) at patient's floor/unit and/or counseling patient: Total time spent with greater than 50% in coordination of care (as documented) at patient's floor/unit and/or counseling patient:: Greater than 35 minutes QUALITY VTE Deep Vein Thrombosis/Pulmonary Embolism Present on Admission: Yes
[2021-03-14] MEDS ORDERED: traZODone HCL 50 MG TABLET PO PRN (08:57)
[2021-03-14] MEDS ORDERED: HEPARIN 5,000 UNIT/ML VIAL SQ ONE (14:00)
[2021-03-14] MEDS: LISINOPRIL 20 MG TABLET PO SCH (14:54)
[2021-03-14] MEDS: amLODIPine 5 MG TABLET PO SCH (14:54)
--- NOTE | 2021-03-14 20:23 | Ultrasound Report ---
History: Pulmonary emboli, evaluate for deep venous thrombosis FINDINGS: In the right leg there is normal augmentation and compressibility of the deep veins and saphenous veins from the groin through the calf. In the left leg nonocclusive thrombus is present in the popliteal vein extending into the posterior tibial and peroneal veins. There is no clot above the knee. The common femoral, superficial femoral, proximal popliteal and saphenous vein are normal. One of the two paired peroneal veins is completely occluded. IMPRESSION: Deep venous thrombosis in the left calf Interpreted and Authenticated by: Jonatan Gao 03/14/21
[2021-03-14] MEDS ORDERED: oxyCODONE/APAP 5/325MG TABLET PO PRN (20:47)
[2021-03-14] MEDS: HEPARIN SOD,PORK IN 0.45% NACL 25,000 UNIT in PREMIX 1 BAG IV SCH (20:51)
[2021-03-14] MEDS ORDERED: HEPARIN 5,000 UNIT/ML VIAL ONE (21:18)
[2021-03-14] MEDS: CYCLOBENZAPRINE 10 MG TABLET PO PRN (21:39)
[2021-03-14] MEDS: LACTATED RINGERS 1,000 ML IV SCH (22:28)
--- NOTE | 2021-03-14 22:30 | Internal Med Progress Note ---
SUBJECTIVE Subjective Patient information: Note initiated : 03/14/21 at 10:24 pm Service Date, if different from initiated Date: [] Patient: Richy Boggs 71 y/o M admitted on 03/13/21 for Sob, low sats. Chief Complaint: [] called to evaluate this 71 yo WM with pulmonary emboli and RV strain. Noted to have tachypnea and tachycardia tonight. says breathing is similar to other nights. cough has improved. Constitutional Vitals: Vital Signs Temp Pulse Resp BP Pulse Ox 97.8 F 120 H 41 H 142/80 95 03/14/21 20:00 03/14/21 05:37 03/14/21 21:56 03/14/21 21:00 03/14/21 21:56 Period Temp Pulse Resp BP Sys/Alvarenga Pulse Ox Last 24 Hr 97.5 F-98.4 F 120 28-43 130-198/73-100 88-100 Intake and Output 03/14/21 03/14/21 03/15/21 13:59 21:59 05:59 Intake Total 789 824 Output Total 400 Balance 789 424 Intake & Output: Intake & Output 03/14/21 03/14/21 03/15/21 13:59 21:59 05:59 Intake Total 789 824 Output Total 400 Balance 789 424 Intake: IV 539 344 Sodium Chloride 0.9% 1,000 ml @ 383 50 mls/hr IV .Q20H [facility] Rx#: [id number] Heparin/0.45%Ns 25,000 Unit In 156 344 Premix 1 Bag @ 14 UNIT/KG/HR 17 .781 mls/hr IV .Q24H [facility] Rx#: [id number] Oral 250 480 Output: Void Amount 250 Urine/Stool Mix 150 Other: Urine Appearance Clear Urine Color Dark Yellow Urine Odor Normal Stool Consistency Loose OBJ DATA Labs CBC & Chem 7: 03/14/21 04:10 03/14/21 04:10 Labs: Abnormal Lab Results 03/14/21 03/14/21 03/14/21 20:00 12:57 04:10 WBC RBC Hgb Hct RDW MPV Neut % (Auto) [place] # (Auto) Absolute Neutrophils PT INR APTT 55.1 H 48.4 H Carbon Dioxide 21 L BUN 27 H Creatinine 1.3 H Glucose 150 H Troponin T NT-Pro-B Natriuret Pep Albumin Globulin Albumin/Globulin Ratio Urine Protein 03/14/21 03/14/21 03/14/21 04:10 04:09 04:09 WBC 12.7 H RBC 3.55 L Hgb 9.8 L Hct 30.5 L RDW 16.3 H MPV 11.4 H Neut % (Auto) 78.1 H [place] # (Auto) Absolute Neutrophils 9.92 H PT INR APTT 42.4 H Carbon Dioxide BUN Creatinine Glucose Troponin T NT-Pro-B Natriuret Pep 29487.0 H Albumin Globulin Albumin/Globulin Ratio Urine Protein 03/13/21 03/13/21 03/13/21 15:17 07:50 07:50 WBC RBC Hgb Hct RDW MPV Neut % (Auto) [place] # (Auto) Absolute Neutrophils PT INR APTT Carbon Dioxide BUN Creatinine Glucose Troponin T 0.08 H* NT-Pro-B Natriuret Pep 4997.0 H Albumin Globulin Albumin/Globulin Ratio Urine Protein 30 A 03/13/21 03/13/21 03/13/21 07:50 07:50 07:33 WBC 14.4 H RBC 3.83 L Hgb 10.7 L Hct 32.3 L RDW 16.3 H MPV 11.1 H Neut % (Auto) [place] # (Auto) 1.14 H Absolute Neutrophils 10.24 H PT 15.8 H INR 1.2 H APTT Carbon Dioxide BUN Creatinine 1.4 H Glucose 116 H Troponin T NT-Pro-B Natriuret Pep Albumin 3.1 L Globulin 4.4 H Albumin/Globulin Ratio 0.7 L Urine Protein GEN WDWN thin WM tachypneic mild distress CV regular and tachycardic Lungs Prolonged exp phase mild wheezing no crackles Calves no edema Skin turgor decrased neck 9 cm JVP Meds: Medications Acetaminophen (Acetaminophen 325 Mg Tablet) 650 mg PO Q6HP PRN; Protocol PRN Reason: Per Pain Protocol/Fever > 101 Last Admin: 03/13/21 21:48 Dose: 650 mg Documented by: Albuterol/Ipratropium (Ipratropium/Albuterol 3 Ml Ampul.Neb) 3 ml NEB Q4HP PRN PRN Reason: Wheezing Amlodipine Besylate (Amlodipine 5 Mg Tablet) 5 mg PO DAILY [facility] Last Admin: 03/14/21 14:54 Dose: 5 mg Documented by: Cyclobenzaprine HCl (Cyclobenzaprine 10 Mg Tablet) 10 mg PO TID PRN PRN Reason: Muscle Spasm Last Admin: 03/14/21 21:39 Dose: 10 mg Documented by: Heparin Sodium/Sodium Chloride (25,000 unit/ Premix) 500 mls @ 17.781 mls/hr IV .Q24H [facility]; Protocol Last Admin: 03/14/21 20:51 Dose: 24.01 unit/kg/hr, 30.5 mls/hr Documented by: Lactated Ringer's (Lactated Ringers) 1,000 mls @ 500 mls/hr IV .Q2H [facility] Lactulose (Lactulose 20 Gm/30 Ml Oral.Denice) 10 gm PO DAILYP PRN PRN Reason: Constipation Lisinopril (Lisinopril 20 Mg Tablet) 40 mg PO DAILY [facility] Last Admin: 03/14/21 14:54 Dose: 40 mg Documented by: Magnesium Hydroxide (Magnesium Hydroxide 30 Ml Oral.Susp) 30 ml PO DAILYP PRN PRN Reason: Constipation Ondansetron HCl (Ondansetron 4 Mg/2 Ml Vial) 4 mg IV Q4HP PRN; Protocol PRN Reason: Nausea And Vomiting Oxycodone/Acetaminophen (Oxycodone/Apap 5/325mg Tablet) 1 tab PO Q4HP PRN; Protocol PRN Reason: Per Pain Protocol Last Admin: 03/14/21 21:39 Dose: 1 tab Documented by: Pantoprazole Sodium (Pantoprazole 40 Mg Tablet) 40 mg PO QAMAC [facility] Last Admin: 03/14/21 07:43 Dose: 40 mg Documented by: Senna (Sennosides 1 Tablet) 2 tab PO HSP PRN PRN Reason: Constipation Sodium Chloride (0.9 % Sodium Chloride 10 Ml Syringe) 10 ml IV Q8 [facility] Last Admin: 03/14/21 22:04 Dose: 10 ml Documented by: Trazodone HCl (Trazodone Hcl 50 Mg Tablet) 50 mg PO HSP PRN PRN Reason: Insomnia Last Admin: 03/14/21 22:03 Dose: 50 mg Documented by: A/P Assessment and plan (1) Right pulmonary embolus: Status: Acute Comment: continue with heparin anticoagulation. change oxygen to high flow (2) Tachycardia: Status: Acute Comment: bolus 1 liter LR. check am magnesium and BMP (3) Hypoxia: Status: Acute Comment: increase oxygen. change from NC Time Spent With Patient Time: Total time spent is greater than 50% in coordination of care (as documented) at patient's floor/unit and/or counseling patient: extended care visit due to respiratory distress Total time spent with greater than 50% in coordination of care (as documented) at patient's floor/unit and/or counseling patient:: 25 - 35 minutes QUALITY VTE Deep Vein Thrombosis/Pulmonary Embolism Present on Admission: Yes
[2021-03-15] MEDS: LACTATED RINGERS 1,000 ML IV SCH (02:36)
[2021-03-15] MEDS: 0.9 % SODIUM CHLORIDE 10 ML SYRINGE IV SCH ×2 (05:02→12:38)
[2021-03-15 07:13] LABS: Basophils # (Auto) 0.02 K/mcL (0.00-0.30); Basophils % (Auto) 0.1 % (0.0-2.0); Eosinophils # (Auto) 0 K/mcL (0.00-0.70); Eosinophils % (Auto) 0 % (0.0-7.0); Hematocrit 27.8 % (40.1-51.0); Hemoglobin 8.6 g/dL (13.7-17.5); Lymphocytes # (Auto) 1.58 K/mcL (1.50-4.80); Lymphocytes % (Auto) 8.6 % (15.5-49.0); Mean Cell Volume 88.3 fL (80.0-100.0); Mean Corpuscular HGB Conc 30.9 g/dL (31.0-36.0); Monocytes # (Auto) 1.46 K/mcL (0.10-0.90); Monocytes % (Auto) 7.9 % (1.0-12.0); Neutrophils % (Auto) 83.4 % (38.0-78.0); Platelet Count 338 K/mcL (140-440); RBC 3.15 M/mcL (4.63-6.08); Red Cell Distribution Width 17.1 % (11.5-14.5); WBC 18.5 K/mcL (4.5-11.0)
[2021-03-15 07:42] LABS: Albumin 2.6 gm/dL (3.2-5.2); Blood Urea Nitrogen 30 mg/dL (8-23); Calcium 8.3 mg/dL (8.6-10.4); Carbon Dioxide 23 mmol/L (22-30); Chloride 105 mmol/L (96-108); Glomerular Filtration Rate 90; Glucose 119 mg/dL (70-105); Phosphorous 2.6 mg/dL (2.5-4.5)
[2021-03-15] MEDS: amLODIPine 5 MG TABLET PO SCH (10:29)
[2021-03-15] MEDS: LISINOPRIL 20 MG TABLET PO SCH (10:29)
[2021-03-15] MEDS ORDERED: APIXABAN 5 MG TABLET PO SCH (10:30)
[2021-03-15] MEDS: PANTOPRAZOLE 40 MG TABLET PO SCH (10:38)
[2021-03-15] MEDS: CYCLOBENZAPRINE 10 MG TABLET PO PRN (11:12)
--- NOTE | 2021-03-15 12:29 | Internal Med Progress Note ---
SUBJECTIVE Subjective Patient information: Note initiated : 03/15/21 at 12:28 pm Service Date, if different from initiated Date: [] Patient: Richy Boggs 71 y/o M admitted on 03/13/21 for Sob, low sats. Chief Complaint: difficulty breathing Principal diagnosis: right pulmonary embolism Interval history: started on heated high flow. Pt says he is breathing better. does have low back pain. somewhat worsened with breathing deeply. Has had fluid bolus last night. no bad effect. Changed to apixaban this am from drip h eparin Pertinent ROS: decreased cough Additional PMFSH (Level 3 Only): history of cancer resected. now with adrenal mass. hold PET due to inpatient with respiratory distress Constitutional Vitals: Vital Signs Temp Pulse Resp BP Pulse Ox 98.4 F 107 H 33 H 103/76 100 03/15/21 08:01 03/14/21 23:01 03/15/21 10:01 03/15/21 10:01 03/15/21 10:01 Period Temp Pulse Resp BP Sys/Alvarenga Pulse Ox Last 24 Hr 97.6 F-98.4 F 107 21-43 103-198/63-100 45-100 Intake and Output 03/14/21 03/15/21 03/15/21 21:59 05:59 13:59 Intake Total 824 1600 Output Total 400 400 750 Balance 424 1200 -750 Weight 65.317 kg Intake & Output: Intake & Output 03/14/21 03/15/21 03/15/21 21:59 05:59 13:59 Intake Total 824 1600 Output Total 400 400 750 Balance 424 1200 -750 Weight 65.317 kg Intake: IV 344 1000 Heparin/0.45%Ns 25,000 Unit In 344 Premix 1 Bag @ 14 UNIT/KG/HR 17 .781 mls/hr IV .Q24H [facility] Rx#: [id number] Lactated Ringers 1,000 ml @ 500 1000 mls/hr IV .Q2H [facility] Rx#: [id number] Oral 480 600 Output: Void Amount 250 400 750 Urine/Stool Mix 150 Other: Urine Appearance Clear Clear Clear Urine Color Dark Yellow Dark Em Light Em Urine Odor Normal Strong Stool Consistency Loose OBJ DATA Labs CBC & Chem 7: 03/15/21 06:04 03/15/21 06:04 Labs: Abnormal Lab Results 11/06/0403/15/21 03/15/21 08:01 06:04 06:04 WBC 18.5 H RBC 3.15 L Hgb 8.6 L Hct 27.8 L MCHC 30.9 L RDW 17.1 H MPV 12.0 H Neut % (Auto) 83.4 H Lymph % (Auto) 8.6 L [place] # (Auto) 1.46 H Absolute Neutrophils 15.40 H PT INR APTT 50.2 H Carbon Dioxide BUN 30 H Creatinine Glucose 119 H Calcium 8.3 L Troponin T NT-Pro-B Natriuret Pep 9639.0 H Albumin 2.6 L Globulin Albumin/Globulin Ratio Urine Protein 03/15/21 03/14/21 03/14/21 02:06 20:00 12:57 WBC RBC Hgb Hct MCHC RDW MPV Neut % (Auto) Lymph % (Auto) [place] # (Auto) Absolute Neutrophils PT INR APTT 97.4 H 55.1 H 48.4 H Carbon Dioxide BUN Creatinine Glucose Calcium Troponin T NT-Pro-B Natriuret Pep Albumin Globulin Albumin/Globulin Ratio Urine Protein 03/14/21 03/14/21 03/14/21 04:10 04:10 04:09 WBC 12.7 H RBC 3.55 L Hgb 9.8 L Hct 30.5 L MCHC RDW 16.3 H MPV 11.4 H Neut % (Auto) 78.1 H Lymph % (Auto) [place] # (Auto) Absolute Neutrophils 9.92 H PT INR APTT 42.4 H Carbon Dioxide 21 L BUN 27 H Creatinine 1.3 H Glucose 150 H Calcium Troponin T NT-Pro-B Natriuret Pep Albumin Globulin Albumin/Globulin Ratio Urine Protein 03/14/21 03/13/21 03/13/21 04:09 15:17 07:50 WBC RBC Hgb Hct MCHC RDW MPV Neut % (Auto) Lymph % (Auto) [place] # (Auto) Absolute Neutrophils PT INR APTT Carbon Dioxide BUN Creatinine Glucose Calcium Troponin T NT-Pro-B Natriuret Pep 09134.0 H 4997.0 H Albumin Globulin Albumin/Globulin Ratio Urine Protein 30 A 03/13/21 03/13/21 03/13/21 07:50 07:50 07:50 WBC 14.4 H RBC 3.83 L Hgb 10.7 L Hct 32.3 L MCHC RDW 16.3 H MPV 11.1 H Neut % (Auto) Lymph % (Auto) [place] # (Auto) 1.14 H Absolute Neutrophils 10.24 H PT INR APTT Carbon Dioxide BUN Creatinine 1.4 H Glucose 116 H Calcium Troponin T 0.08 H* NT-Pro-B Natriuret Pep Albumin 3.1 L Globulin 4.4 H Albumin/Globulin Ratio 0.7 L Urine Protein 03/13/21 07:33 WBC RBC Hgb Hct MCHC RDW MPV Neut % (Auto) Lymph % (Auto) [place] # (Auto) Absolute Neutrophils PT 15.8 H INR 1.2 H APTT Carbon Dioxide BUN Creatinine Glucose Calcium Troponin T NT-Pro-B Natriuret Pep Albumin Globulin Albumin/Globulin Ratio Urine Protein CT report IMPRESSION: Multiple pulmonary emboli in the right lower lobe with milder involvement in the right middle lobe. Right heart strain COPD and pulmonary fibrosis No evidence of metastasis or recurrent tumor following left upper lobectomy Meds: Medications Acetaminophen (Acetaminophen 325 Mg Tablet) 650 mg PO Q6HP PRN; Protocol PRN Reason: Per Pain Protocol/Fever > 101 Last Admin: 03/13/21 21:48 Dose: 650 mg Documented by: Albuterol/Ipratropium (Ipratropium/Albuterol 3 Ml Ampul.Neb) 3 ml NEB Q4HP PRN PRN Reason: Wheezing Amlodipine Besylate (Amlodipine 5 Mg Tablet) 5 mg PO DAILY [facility] Last Admin: 03/15/21 10:29 Dose: Not Given Documented by: Apixaban (Apixaban 5 Mg Tablet) 10 mg PO BID [facility] Last Admin: 03/15/21 10:50 Dose: 10 mg Documented by: Cyclobenzaprine HCl (Cyclobenzaprine 10 Mg Tablet) 10 mg PO TID PRN PRN Reason: Muscle Spasm Last Admin: 03/15/21 11:12 Dose: 10 mg Documented by: Lactulose (Lactulose 20 Gm/30 Ml Oral.Denice) 10 gm PO DAILYP PRN PRN Reason: Constipation Lisinopril (Lisinopril 20 Mg Tablet) 40 mg PO DAILY [facility] Last Admin: 03/15/21 10:29 Dose: Not Given Documented by: Magnesium Hydroxide (Magnesium Hydroxide 30 Ml Oral.Susp) 30 ml PO DAILYP PRN PRN Reason: Constipation Ondansetron HCl (Ondansetron 4 Mg/2 Ml Vial) 4 mg IV Q4HP PRN; Protocol PRN Reason: Nausea And Vomiting Oxycodone/Acetaminophen (Oxycodone/Apap 5/325mg Tablet) 1 tab PO Q4HP PRN; Protocol PRN Reason: Per Pain Protocol Last Admin: 03/14/21 21:39 Dose: 1 tab Documented by: Pantoprazole Sodium (Pantoprazole 40 Mg Tablet) 40 mg PO QAMAC [facility] Last Admin: 03/15/21 10:38 Dose: 40 mg Documented by: Senna (Sennosides 1 Tablet) 2 tab PO HSP PRN PRN Reason: Constipation Sodium Chloride (0.9 % Sodium Chloride 10 Ml Syringe) 10 ml IV Q8 [facility] Last Admin: 03/15/21 05:02 Dose: 10 ml Documented by: Trazodone HCl (Trazodone Hcl 50 Mg Tablet) 50 mg PO HSP PRN PRN Reason: Insomnia Last Admin: 03/14/21 22:03 Dose: 50 mg Documented by: A/P Assessment and plan (1) Right pulmonary embolus: Status: Acute Comment: swapped to apixaban this morning and heparin drip stopped due to unstable PTT. size of PE is moderate. right heart strain on echo. (2) Adenocarcinoma of left lung: Status: Resolved Comment: moderately differentiated; s/p lobectomy TTF-1: Positive. Napsin-A: Positive. CK7: Positive. CK20: Negative. p63: Negative. possible recurrent in adrenal gland but PET held due to current medical acute decompensated illness. (3) Centrilobular emphysema: Status: Chronic Comment: mild, seen on CT chest October 2016 steroids and cont nebs (4) Tachycardia: Status: Acute Comment: improved. mag and phos normal Time Spent With Patient Time: Total time spent is greater than 50% in coordination of care (as documented) at patient's floor/unit and/or counseling patient: 40 mins QUALITY VTE Deep Vein Thrombosis/Pulmonary Embolism Present on Admission: Yes
[2021-03-15] MEDS: methylPREDNISolone SOD SUCC 125 MG/2 ML VIAL IV SCH ×2 (15:44→15:45)
[2021-03-15] MEDS ORDERED: LORazepam 2 MG/ML VIAL IV ONE (16:45)
--- NOTE | 2021-03-15 17:49 | Internal Med Progress Note ---
SUBJECTIVE Subjective Patient information: Note initiated : 03/15/21 at 5:40 pm Service Date, if different from initiated Date: [] Patient: Richy Boggs 71 y/o M admitted on 03/13/21 for Sob, low sats. Chief Complaint: [called to evaluate acute resp distress] Principal diagnosis: right pulmonary embolism Interval history: due to wheezing this morning and severe COPD pt started on solumedrol 62.5 mg iv x 1 but had worsened resp distress tachycardia and tachypnea. thought to be due to intolerance but after 0.5 mg lorazepam IV pt with severe tachypnea and now hypoxemia to 75% RT at bedside and increased the high flow oxygen to 100% but pt still only 81%. Pt tells me he doesnt want CPR or intubation and venitilator. this morning said he is down to 3 cigs a day. doesnt need a nicotine patch. Pertinent ROS: sob no cough production known adrenal mass Additional PMFSH (Level 3 Only): COPD guillane [place] Constitutional Vitals: Vital Signs Temp Pulse Resp BP Pulse Ox 97.1 F 107 H 42 H 138/83 99 03/15/21 16:00 03/14/21 23:01 03/15/21 16:00 03/15/21 16:00 03/15/21 13:00 Period Temp Pulse Resp BP Sys/[place] Pulse Ox Last 24 Hr 97.1 F-98.6 F 107 21-43 103-198/63-100 45-100 Intake and Output 03/15/21 03/15/21 03/15/21 05:59 13:59 21:59 Intake Total 1600 462 600 Output Total 064 141 5689 Balance 1200 -288 -400 Weight 65.317 kg Patient Weight 03/16/21 05:59 Weight 65.317 kg Intake & Output: Intake & Output 03/15/21 03/15/21 03/15/21 05:59 13:59 21:59 Intake Total 1600 462 600 Output Total 408 147 8422 Balance 1200 -288 -400 Weight 65.317 kg Intake: IV 1000 462 Heparin/0.45%Ns 25,000 Unit In 462 Premix 1 Bag @ 14 UNIT/KG/HR 17 .781 mls/hr IV .Q24H MACEY Rx#: [id number] Lactated Ringers 1,000 ml @ 500 1000 mls/hr IV .Q2H MACEY Rx#: [id number] Oral 600 240 GI Tube Flush 360 Output: Void Amount 086 507 4014 Other: Meal Nourishment/Supplement Percent of Meal Consumed 100% Feeding Ability Independent Urine Appearance Clear Clear Urine Color Dark Em Light Em Bright Yellow Urine Odor Strong Normal Additional findings Additional findings: GEN WD thin nearly cachectic WM in severe respiratory distress CV tachycardic regular no blowing or loud murmur Lungs absent LLL breath sounds. CRISTOBAL mild air movement. Right lung with mod good air movement prolonged exp phase and wheezing Calves no edema skin moist warm. ext cool. mentation alert but fatigued. OBJ DATA Labs CBC & Chem 7: 03/15/21 06:04 03/15/21 06:04 Labs: Abnormal Lab Results 03/15/21 03/15/21 03/15/21 08:01 06:04 06:04 WBC 18.5 H RBC 3.15 L Hgb 8.6 L Hct 27.8 L MCHC 30.9 L RDW 17.1 H MPV 12.0 H Neut % (Auto) 83.4 H Lymph % (Auto) 8.6 L Clinch # (Auto) 1.46 H Absolute Neutrophils 15.40 H PT INR APTT 50.2 H Carbon Dioxide BUN 30 H Creatinine Glucose 119 H Calcium 8.3 L Troponin T NT-Pro-B Natriuret Pep 9639.0 H Albumin 2.6 L Globulin Albumin/Globulin Ratio Urine Protein 03/15/21 03/14/21 03/14/21 02:06 20:00 12:57 WBC RBC Hgb Hct MCHC RDW MPV Neut % (Auto) Lymph % (Auto) Clinch # (Auto) Absolute Neutrophils PT INR APTT 97.4 H 55.1 H 48.4 H Carbon Dioxide BUN Creatinine Glucose Calcium Troponin T NT-Pro-B Natriuret Pep Albumin Globulin Albumin/Globulin Ratio Urine Protein 03/14/21 03/14/21 03/14/21 04:10 04:10 04:09 WBC 12.7 H RBC 3.55 L Hgb 9.8 L Hct 30.5 L MCHC RDW 16.3 H MPV 11.4 H Neut % (Auto) 78.1 H Lymph % (Auto) Clinch # (Auto) Absolute Neutrophils 9.92 H PT INR APTT 42.4 H Carbon Dioxide 21 L BUN 27 H Creatinine 1.3 H Glucose 150 H Calcium Troponin T NT-Pro-B Natriuret Pep Albumin Globulin Albumin/Globulin Ratio Urine Protein 03/14/21 03/13/21 03/13/21 04:09 15:17 07:50 WBC RBC Hgb Hct MCHC RDW MPV Neut % (Auto) Lymph % (Auto) Clinch # (Auto) Absolute Neutrophils PT INR APTT Carbon Dioxide BUN Creatinine Glucose Calcium Troponin T NT-Pro-B Natriuret Pep 36091.0 H 4997.0 H Albumin Globulin Albumin/Globulin Ratio Urine Protein 30 A 03/13/21 03/13/21 03/13/21 07:50 07:50 07:50 WBC 14.4 H RBC 3.83 L Hgb 10.7 L Hct 32.3 L MCHC RDW 16.3 H MPV 11.1 H Neut % (Auto) Lymph % (Auto) Clinch # (Auto) 1.14 H Absolute Neutrophils 10.24 H PT INR APTT Carbon Dioxide BUN Creatinine 1.4 H Glucose 116 H Calcium Troponin T 0.08 H* NT-Pro-B Natriuret Pep Albumin 3.1 L Globulin 4.4 H Albumin/Globulin Ratio 0.7 L Urine Protein 03/13/21 07:33 WBC RBC Hgb Hct MCHC RDW MPV Neut % (Auto) Lymph % (Auto) Clinch # (Auto) Absolute Neutrophils PT 15.8 H INR 1.2 H APTT Carbon Dioxide BUN Creatinine Glucose Calcium Troponin T NT-Pro-B Natriuret Pep Albumin Globulin Albumin/Globulin Ratio Urine Protein Meds: Medications Acetaminophen (Acetaminophen 325 Mg Tablet) 650 mg PO Q6HP PRN; Protocol PRN Reason: Per Pain Protocol/Fever > 101 Last Admin: 03/13/21 21:48 Dose: 650 mg Documented by: Albuterol/Ipratropium (Ipratropium/Albuterol 3 Ml Ampul.Neb) 3 ml NEB Q4HP PRN PRN Reason: Wheezing Apixaban (Apixaban 5 Mg Tablet) 10 mg PO BID MACEY Last Admin: 03/15/21 10:50 Dose: 10 mg Documented by: Budesonide (Budesonide 0.5 Mg/2 Ml Ampul.Neb) 0.5 mg NEB Q12 MACEY Cyclobenzaprine HCl (Cyclobenzaprine 10 Mg Tablet) 10 mg PO TID PRN PRN Reason: Muscle Spasm Last Admin: 03/15/21 11:12 Dose: 10 mg Documented by: Piperacillin Sod/Tazobactam (Sod 4.5 gm/ Dextrose) 50 mls @ 100 mls/hr IV Q8H [facility]; Protocol Lactulose (Lactulose 20 Gm/30 Ml Oral.Denice) 10 gm PO DAILYP PRN PRN Reason: Constipation Lisinopril (Lisinopril 20 Mg Tablet) 40 mg PO DAILY [facility] Last Admin: 03/15/21 10:29 Dose: Not Given Documented by: Magnesium Hydroxide (Magnesium Hydroxide 30 Ml Oral.Susp) 30 ml PO DAILYP PRN PRN Reason: Constipation Ondansetron HCl (Ondansetron 4 Mg/2 Ml Vial) 4 mg IV Q4HP PRN; Protocol PRN Reason: Nausea And Vomiting Oxycodone/Acetaminophen (Oxycodone/Apap 5/325mg Tablet) 1 tab PO Q4HP PRN; Protocol PRN Reason: Per Pain Protocol Last Admin: 03/14/21 21:39 Dose: 1 tab Documented by: Pantoprazole Sodium (Pantoprazole 40 Mg Tablet) 40 mg PO QAMAC [facility] Last Admin: 03/15/21 10:38 Dose: 40 mg Documented by: Senna (Sennosides 1 Tablet) 2 tab PO HSP PRN PRN Reason: Constipation Sodium Chloride (0.9 % Sodium Chloride 10 Ml Syringe) 10 ml IV Q8 [facility] Last Admin: 03/15/21 12:38 Dose: 10 ml Documented by: Trazodone HCl (Trazodone Hcl 50 Mg Tablet) 50 mg PO HSP PRN PRN Reason: Insomnia Last Admin: 03/14/21 22:03 Dose: 50 mg Documented by: A/P Assessment and plan (1) Right pulmonary embolus: Status: Acute Comment: swapped to apixaban this morning and heparin drip stopped due to unstable PTT. size of PE is moderate. right heart strain on echo. (2) Hypoxia: Status: Acute Comment: needs intubation but declines medically CXR pending. suspect atelectasis of pneumothorax left lung (3) Adenocarcinoma of left lung: Status: Resolved Comment: moderately differentiated; s/p lobectomy TTF-1: Positive. Napsin-A: Positive. CK7: Positive. CK20: Negative. p63: Negative. possible recurrent in adrenal gland but PET held due to current medical acute decompensated illness. (4) Left lower lobe pneumonia: Status: Acute Comment: add zosyn Qualifiers: Pneumonia type: due to unspecified organism Qualified Code(s): J18.1 - Lobar pneumonia, unspecified organism (5) Centrilobular emphysema: Status: Chronic Comment: mild, seen on CT chest October 2016 steroids and cont nebs didnt tolerate steroid but I suspect is time coincidence with hypoxia caused by new problem. Time Spent With Patient Time: Total time spent is greater than 50% in coordination of care (as documented) at patient's floor/unit and/or counseling patient: extended care critical care time 40 mins Total time spent with greater than 50% in coordination of care (as documented) at patient's floor/unit and/or counseling patient:: Greater than 35 minutes QUALITY VTE Deep Vein Thrombosis/Pulmonary Embolism Present on Admission: Yes
--- NOTE | 2021-03-15 17:56 | XRay Report ---
INDICATION: resp distress TECHNIQUE: AP portable, semiupright chest x-ray COMPARISON: Previous chest x-ray dated 03/13/2021. Previous CT scan dated 03/13/2021 FINDINGS: Lungs:Severe emphysema. There are surgical clips consistent with previous left upper lobectomy. There is left perihilar fibrotic change. Possible mild right basilar parenchymal infiltrate. Findings may be due to infection including covid pneumonia. Clinical correlation necessary. No other focal pulmonary parenchymal abnormality. Heart, vascular:No significant cardiomegaly. Pulmonary vascularity is normal. No pulmonary edema or pulmonary congestion Mediastinum, laila:No mediastinal widening. No hilar mass Pleura:No pleural fluid. No pleural-based mass or calcification Skeletal:Negative. IMPRESSION: 1. COPD 2. Appearance consistent with previous left upper lobectomy 3. Lung bases are asymmetric and right basilar infiltrate is suspected. Interpreted and Authenticated by: Anton Spivey 03/15/21
[2021-03-15] MEDS ORDERED: PIPERACILLIN SODIUM/TAZOBACTAM 4.5 GM in DEXTROSE 5% IN WATER 50 ML IV SCH (18:00)
[2021-03-15] MEDS ORDERED: DEXMEDETOMIDINE 400 MCG in PREMIX 1 BAG IV SCH (18:45)
[2021-03-15] MEDS ORDERED: DEXMEDETOMIDINE 100 ML IV ONE (18:51)
[2021-03-15] MEDS ORDERED: morphine 2 MG/ML VIAL IV PRN (19:20)
[2021-03-15] MEDS ORDERED: FUROSEMIDE 20 MG/2 ML VIAL IV ONE ×2 (20:37→20:49)
[2021-03-15] MEDS ORDERED: NITROGLYCERIN 0.4 MG TAB.SUBL SL ONE ×2 (20:41→20:48)
[2021-03-15] MEDS ORDERED: METOPROLOL TARTRATE 5 MG/5 ML VIAL IV SCH (20:45)
[2021-03-15] MEDS ORDERED: morphine 4 MG/ML VIAL IV PRN (20:47)
[2021-03-15] MEDS ORDERED: METOPROLOL TARTRATE 5 MG/5 ML VIAL IV ONE (20:48)
[2021-03-15] MEDS ORDERED: LORazepam 2 MG/ML VIAL IV PRN (20:50)
[2021-03-15] MEDS ORDERED: BUDESONIDE 0.5 MG/2 ML AMPUL.NEB NEB SCH (21:00)
[2021-03-15] MEDS ORDERED: FLUTICASONE/SALMETEROL 250/50 INHALER #14 INH SCH (21:00)
--- NOTE | 2021-03-15 21:54 | Death Note ---
Discharge Sum: Prov Provider Patient information: Note initiated : 03/15/21 at 9:46 pm Service Date, if different from initiated Date: [] Patient: Richy Boggs 71 y/o M admitted on 03/13/21 for Sob, low sats. Chief Complaint: CANTOR Primary care physician: Yanet Correa Consults: 03/13/21 Consult to Physician [CONS] Stat Comment: Consulting Provider: Gricelda Campbell Reason For Exam: Physician to Consult 03/13/21 10:50 Consult to Physician [CONS] Stat Comment: Consulting Provider: Gricelda Campbell Reason For Exam: Physician to Consult Discharge Sum: Diag PCOD Cause of : Myocardial infarction of lateral wall Contributing Factors (1) Right pulmonary embolus: (2) Hypoxia: (3) Adenocarcinoma of left lung: (4) Left lower lobe pneumonia: (5) Centrilobular emphysema: Discharge Sum: Summary Date and Time Date of admission: 03/13/21 12:27 Date of : 03/15/21 Time of : 21:00 Summary Details: 71 yo WM with history of lung cancer and new adrenal mass admitted with right pulmonary artery embolism. Pt was treated with heparin and switched over to Apixaban today. Pt had long smoking history but was down to 3 cigs a day. He had previously been intubated for [place] and had made decision no more ventilator or CPR. Pt today had acute worsening of sob, tachycardia and tachypnea and EKG showed anterolateral MD. Pts family arrived at bedside and Aleks the daughter was main spokesperson. Pt was made comfortable and passed with hypotension and bradycardia rhythm. Additional Data Confirmation of as documented by pronouncing clinician: no pulse, no respirations, no heart sounds and pupils fixed and dilated Family: at bedside Attending/PCP notified?: Yes Attending physician: Emmanuel Hanson Was code activated?: No Autopsy requested?: No life claims examiner notified?: No Advance directives?: Yes Hospice patient?: No
--- NOTE | 2021-03-16 07:01 | EKG ---
[facility] Test Date: 2021-03-13 Pat Name: Richy Boggs Department: ICU Room: 119 Gender: Male Care Specialist: JOHN : 1950 Requested By: Gricelda Campbell Order Number: [id number] Reading MD: Jian Andrea Measurements Intervals [place] Rate: 142 P: 102 PA: 152 QRS: 80 QRSD: 124 T: 123 QT: 253 QTc: 389 Interpretive Statements SINUS TACHYCARDIA RIGHT BUNDLE BRANCH BLOCk Compared to prior heart rate is increased Electronically Signed On 03-16-2021 7:01:12 PDT by Jian Andrea /[id number]/[id number]
[2021-03-16] MEDS ORDERED: BENAZEPRIL 40 MG PO SCH (09:00)
== END 2021-03-15 21:30 | disposition expired | DRG 175 ==
LOC: ED 07:13 → ICU 12:27
PROVIDERS: ADMIT Internal Medicine; ATTEND Internal Medicine